=== PATIENT | female | born 1960 | race Caucasian/White ===

== ENCOUNTER 2017-07-21 07:19 | Emergency (ER) | payer OTHER ==
[~2017-07-21] VITALS: Ht 167.6 cm; Wt 109.1 kg
[2017-07-21] MEDS ORDERED: MONT10TA21 PO (07:42)
[2017-07-21] MEDS ORDERED: ACYC200C PO (07:42)
[2017-07-21] MEDS ORDERED: CITA20TA9 PO (07:42)
[2017-07-21] MEDS ORDERED: OMEP10 PO (07:42)
[2017-07-21 08:53] VITALS: BP 147/98
== END 2017-07-21 09:05 | disposition home or self-care (01) ==
LOC: EMS 07:22
DX: F41.9 Anxiety disorder, unspecified (principal); F32.9 Major depressive disorder, single episode, unspecified; J45.909 Unspecified asthma, uncomplicated; Z88.0 Allergy status to penicillin; Z88.8 Allergy status to other drugs, medicaments and biological substances
CPT/HCPCS: 93005; 99284